=== PATIENT | male | born 1965 | race Caucasian/White ===

== ENCOUNTER 2019-02-13 08:39 | Outpatient (CLI) | payer MEDICAID ==
[~2019-02-13 08:39] MED LIST: BENZ1TAB7 PO; BUSP30TA3 PO; CLON-529 PO; DISU250T PO; DOCU100C41 PO; DULO-31 PO; HYDR50TA65 PO; LAMO100T PO; LURA60TA2 PO; NICO-669 PO; NITR0.4T48 SL; RANI-388 PO
== END 2019-02-13 23:59 | disposition home or self-care (01) ==
LOC: RAD 08:39
PROVIDERS: ATTEND Family Medicine
DX: G40.909 Epilepsy, unspecified, not intractable, without status epilepticus (principal)
CPT/HCPCS: 95816

== ENCOUNTER 2022-05-02 11:10 | Inpatient (IN) | payer MEDICAID ==
[~2022-05-02] VITALS: Ht 172.7 cm; Wt 101.0 kg
[~2022-05-02 11:10] MED LIST changes: -BENZ1TAB7 PO; +BENZ1TAB78 PO; +LURA60TA PO; -LURA60TA2 PO
[2022-05-02 12:20] LABS: HEMATOCRIT 41.1 % (42.0-52.0); HEMOGLOBIN 13.5 g/dl (14.0-17.9)
[2022-05-02 12:21] LABS: BASOPHILS % (AUTO) 0.4 % (0-1); EOSINOPHILS # (AUTO) 0.1 X10'3 (0-0.9); EOSINOPHILS % (AUTO) 0.8 % (0-6); MEAN CORPUSCULAR HEMOGLOBIN 26.8 PG (27.0-31.0); MEAN CORPUSCULAR HGB CONC 32.7 g/dL (33.0-36.5); MEAN CORPUSCULAR VOLUME 81.9 FL (78-98); MEAN PLATELET VOLUME 7.6 FL (7.4-10.4); MONOCYTES # (AUTO) 0.8 X10'3 (0-0.9); NEUTROPHILS # (AUTO) 11.7 X10'3 (1.8-7.7); NEUTROPHILS % (AUTO) 85.8 % (42-75); PLATELET COUNT 298 X10'3 (140-440); RED BLOOD COUNT 5.02 X10'6 (4.70-6.10); RED CELL DISTRIBUTION WIDTH 17.6 % (11.5-14.5); WHITE BLOOD COUNT 13.6 X10'3 (4.5-11.0)
[2022-05-02 12:24] LABS: ALANINE AMINOTRANSFERASE 30 U/L (12-78); ALBUMIN 2.2 G/DL (3.4-5.0); ALBUMIN/GLOBULIN RATIO 0.4 (1.1-1.5); ALKALINE PHOSPHATASE 128 IU/L (46-116); ANION GAP 12 (8-16); ASPARTATE AMINO TRANSFERASE 39 U/L (10-37); BILIRUBIN,TOTAL 0.6 MG/DL (0.1-1.0); BLOOD UREA NITROGEN 9 MG/DL (7-18); BUN/CREATININE RATIO 12.3 (10.0-20.0); CALCIUM 9.2 MG/DL (8.5-10.1); CHLORIDE 97 MMOL/L (99-107); CREATININE 0.73 MG/DL (0.60-1.10); GLUCOSE 106 MG/DL (70-104); POTASSIUM 3.7 MMOL/L (3.5-5.1); SODIUM 134 MMOL/L (135-145); TOTAL PROTEIN 7.5 G/DL (6.4-8.2); eGFR > 90 ML/MIN
[2022-05-02 12:27] LABS: LACTIC SEPSIS 2.8 MMOL/L (0.4-2.0)
[2022-05-02 12:28] LABS: D-DIMER 8.29 MG/L FEU (0-0.50)
[2022-05-02 12:32] LABS: ETHANOL 0.045 GM/DL (0.0-0.010)
--- NOTE | 2022-05-02 12:40 | NUR ---
Tried to put a peripheral IV catheter x 2 without success.
--- NOTE | 2022-05-02 12:54 | NUR ---
A bed bug was found by the on call pharmacy technician and was reported to Dilia, Director of ER. Housekeeping was notified. Contact precaution initiated. Explained to patient that we have to put him on contact isolation because of the bed bug that was found on him.
[2022-05-02] MEDS ORDERED: iohexol 350MG/ML 100ml bottle IV ONE (12:57)
--- NOTE | 2022-05-02 15:04 | NUR ---
PT. GAVE US PERMISSION TO SPEAK TO FRIEND SAM COLLAZO [phone]
[2022-05-02] MEDS ORDERED: CefTRIAXone/D5W-Rocephin 1gm 50 ML IV ONE (15:30)
[2022-05-02] MEDS ORDERED: azithromycin/NS 500mg/250ml 250 ML IV ONE (15:30)
[2022-05-02] MEDS ORDERED: ipratropium/albuterol 3ml nebule NEB ONE (16:25)
[2022-05-02] MEDS ORDERED: vancomycin inj 1,000 MG in normal saline 250ml IV soln 250 ML IV ONE (16:25)
[2022-05-02] MEDS ORDERED: vancomycin/NS 1 GM ADD-VANTAGE 250 ML IV ONE (16:25)
[2022-05-02] MEDS ORDERED: ondansetron/PF 4mg/2ml inj IV PRN (16:35)
[2022-05-02] MEDS ORDERED: mag hydrox/Alum hydrox/simeth 30ml oral suspension PO PRN (16:35)
[2022-05-02] MEDS ORDERED: magnesium hydroxide 30ml (MOM) UD suspension PO PRN (16:35)
[2022-05-02] MEDS ORDERED: HYDROcodone/acetaminophen 5mg/325mg tablet PO PRN (16:35)
[2022-05-02] MEDS ORDERED: enoxaparin 100mg/ml syringe SUBCUT ONE ×2 (16:35→17:55)
[2022-05-02] MEDS ORDERED: morphine 2 MG/ML inj. syringe IV PRN (16:35)
[2022-05-02] MEDS ORDERED: acetaminophen 325mg tablet PO PRN ×2 (16:35)
--- NOTE | 2022-05-02 18:12 | NUR ---
Paged Dr. Melgar: DIEGO Moe RN RE: Gino Dior. certified pest control technician told me that patient is + for DVT, she told Dr. Gardner, Im not sure if he contacted you. Lovenox 100 mg SQ was given prior to the vascular jose alberto. Do you have any order?
[2022-05-02] MEDS: docusate sod 100mg capsule PO SCH (20:00)
[2022-05-02] MEDS ORDERED: Permethrin Cream 60gm TP STA (21:10)
--- NOTE | 2022-05-02 21:10 | NUR ---
MD Hdz notified patient arrived to the floor from the ER with suspected bed bugs and was not treated in the ER. New order was received for Permethrin cream to be applied after shower.
[2022-05-02 21:30] VITALS: BP 129/72
[2022-05-02] MEDS: HYDROcodone/acetaminophen 10/325mg tab PO PRN (21:37)
--- NOTE | 2022-05-02 23:00 | NUR ---
Patient to room 4018 around 2100. Was not treated in ED per protocol with 1st shower and cream for possible bed bugs. stair builder here, stair builder in ED and Financial Assistant aware. Patient went straight from [facility] to shower in room and then cream applied and clean gown provided. Engineering provided sticky strips to door and all PPE was delivered to [facility]. No bugs visualized at this time.
[2022-05-03 06:00] VITALS: BP 115/66
[2022-05-03 06:06] LABS: ALBUMIN 1.7 G/DL (3.4-5.0); ANION GAP 7 (8-16); BLOOD UREA NITROGEN 9 MG/DL (7-18); BUN/CREATININE RATIO 13.2 (10.0-20.0); CALCIUM 8.6 MG/DL (8.5-10.1); CHLORIDE 102 MMOL/L (99-107); CREATININE 0.68 MG/DL (0.60-1.10); GLUCOSE 83 MG/DL (70-104); POTASSIUM 3.3 MMOL/L (3.5-5.1); SODIUM 134 MMOL/L (135-145); TOTAL CARBON DIOXIDE 24.8 MMOL/L (24-32); eGFR > 90 ML/MIN
[2022-05-03 06:20] LABS: BASOPHILS % (AUTO) 0.5 % (0-1); EOSINOPHILS # (AUTO) 0.5 X10'3 (0-0.9); EOSINOPHILS % (AUTO) 6.2 % (0-6); HEMATOCRIT 34.8 % (42.0-52.0); HEMOGLOBIN 11.8 g/dl (14.0-17.9); LYMPHOCYTES # (AUTO) 1.7 X10'3 (1.1-4.8); LYMPHOCYTES % (AUTO) 19.8 % (21-51); MEAN CORPUSCULAR HEMOGLOBIN 27.5 PG (27.0-31.0); MEAN CORPUSCULAR HGB CONC 33.8 g/dL (33.0-36.5); MEAN CORPUSCULAR VOLUME 81.3 FL (78-98); MEAN PLATELET VOLUME 7.8 FL (7.4-10.4); MONOCYTES # (AUTO) 0.7 X10'3 (0-0.9); MONOCYTES % (AUTO) 8.4 % (2-12); NEUTROPHILS # (AUTO) 5.4 X10'3 (1.8-7.7); NEUTROPHILS % (AUTO) 65.1 % (42-75); PLATELET COUNT 271 X10'3 (140-440); RED BLOOD COUNT 4.28 X10'6 (4.70-6.10); RED CELL DISTRIBUTION WIDTH 17.6 % (11.5-14.5); WHITE BLOOD COUNT 8.3 X10'3 (4.5-11.0)
--- NOTE | 2022-05-03 07:33 | NUR ---
Patient in room ORTHO 4018. I have received report from Bryanna COATS and had the opportunity to ask questions and assume patient care.
[2022-05-03 08:30] VITALS: BP 131/75
[2022-05-03] MEDS: docusate sod 100mg capsule PO SCH ×2 (08:34→20:00)
[2022-05-03] MEDS: apixaban 5mg tablet PO SCH ×2 (08:34→20:47)
[2022-05-03] MEDS: morphine 2 MG/ML inj. syringe IV PRN ×2 (08:35→20:48)
[2022-05-03] MEDS ORDERED: NICOTINE POLACRILEX 2 MG LOZENGE BC PRN (10:15)
[2022-05-03] MEDS ORDERED: docusate sod 100mg capsule PO PRN (10:15)
[2022-05-03] MEDS ORDERED: hydrOXYzine 25 MG tablet PO PRN (10:15)
[2022-05-03] MEDS: levetiracetam 250mg tablet PO SCH ×2 (11:32→20:46)
[2022-05-03] MEDS: busPIRone 15mg tablet PO SCH ×2 (11:32→20:45)
[2022-05-03] MEDS: lamoTRIgine 100mg tablet PO SCH ×2 (11:32→20:45)
[2022-05-03] MEDS ORDERED: LACO150T4 PO (13:22)
[2022-05-03] MEDS ORDERED: PRAZ2CAP2 PO (13:22)
[2022-05-03] MEDS ORDERED: LIT300C PO (13:22)
[2022-05-03] MEDS ORDERED: PALI234D IM (13:22)
[2022-05-03] MEDS ORDERED: PROP20TA6 PO (13:22)
[2022-05-03] MEDS ORDERED: LEVE10006 PO (13:22)
[2022-05-03] MEDS ORDERED: FLUO40CA PO (13:22)
--- NOTE | 2022-05-03 17:31 | NUR ---
called evs and notified that nursing staff placed belongings in plastic bag and that the plastic bag needs to be taken down stairs and locked up until the patient is discharged
[2022-05-03 18:00] VITALS: BP 115/52
[2022-05-03] MEDS: cloNIDine 0.1 mg tablet PO SCH (20:46)
[2022-05-03] MEDS: benztropine 1mg tablet PO SCH (20:46)
[2022-05-03] MEDS: famotidine 20mg tablet PO SCH (20:46)
[2022-05-03 22:00] VITALS: BP 137/69
[2022-05-04 04:31] VITALS: BP 132/68
[2022-05-04 06:00] VITALS: BP 118/54
[2022-05-04 07:15] LABS: BASOPHILS # (AUTO) 0.1 X10'3 (0-0.2); BASOPHILS % (AUTO) 0.5 % (0-1); EOSINOPHILS # (AUTO) 0.5 X10'3 (0-0.9); EOSINOPHILS % (AUTO) 5.3 % (0-6); HEMATOCRIT 36.3 % (42.0-52.0); HEMOGLOBIN 11.9 g/dl (14.0-17.9); LYMPHOCYTES # (AUTO) 1.4 X10'3 (1.1-4.8); LYMPHOCYTES % (AUTO) 13.9 % (21-51); MEAN CORPUSCULAR HEMOGLOBIN 26.9 PG (27.0-31.0); MEAN CORPUSCULAR HGB CONC 32.9 g/dL (33.0-36.5); MEAN CORPUSCULAR VOLUME 81.7 FL (78-98); MEAN PLATELET VOLUME 7.6 FL (7.4-10.4); MONOCYTES # (AUTO) 0.6 X10'3 (0-0.9); NEUTROPHILS # (AUTO) 7.4 X10'3 (1.8-7.7); NEUTROPHILS % (AUTO) 74.3 % (42-75); PLATELET COUNT 330 X10'3 (140-440); RED BLOOD COUNT 4.44 X10'6 (4.70-6.10); RED CELL DISTRIBUTION WIDTH 17.8 % (11.5-14.5)
[2022-05-04 07:47] LABS: ALBUMIN 1.6 G/DL (3.4-5.0); ANION GAP 10 (8-16); BLOOD UREA NITROGEN 11 MG/DL (7-18); BUN/CREATININE RATIO 17.7 (10.0-20.0); CALCIUM 8.6 MG/DL (8.5-10.1); CHLORIDE 100 MMOL/L (99-107); CREATININE 0.62 MG/DL (0.60-1.10); GLUCOSE 88 MG/DL (70-104); POTASSIUM 3.6 MMOL/L (3.5-5.1); SODIUM 136 MMOL/L (135-145); TOTAL CARBON DIOXIDE 26.1 MMOL/L (24-32); eGFR > 90 ML/MIN
[2022-05-04] MEDS: cloNIDine 0.1 mg tablet PO SCH ×2 (08:00→20:57)
[2022-05-04] MEDS: levetiracetam 250mg tablet PO SCH ×2 (08:31→20:57)
[2022-05-04] MEDS: lamoTRIgine 100mg tablet PO SCH ×3 (08:32→20:57)
[2022-05-04] MEDS: duloxetine 30mg CAPSULE.DR PO SCH (08:32)
[2022-05-04] MEDS: docusate sod 100mg capsule PO SCH ×2 (08:32→20:00)
[2022-05-04] MEDS: apixaban 5mg tablet PO SCH ×2 (08:32→20:57)
[2022-05-04] MEDS: benztropine 1mg tablet PO SCH ×2 (08:33→20:57)
[2022-05-04] MEDS: busPIRone 15mg tablet PO SCH ×2 (08:33→20:56)
[2022-05-04] MEDS: lurasidone 60mg tablet PO SCH (08:33)
[2022-05-04] MEDS: furosemide 20 MG/2 ML vial IV SCH (10:30)
[2022-05-04 10:55] VITALS: BP 114/70
--- NOTE | 2022-05-04 11:45 | NUR ---
as clinical instructor, i reviewed student nurse physical assessment of pt
[2022-05-04 18:00] VITALS: BP 100/75
[2022-05-04 20:52] VITALS: BP 124/69
[2022-05-04] MEDS: HYDROcodone/acetaminophen 10/325mg tab PO PRN (20:57)
[2022-05-04] MEDS: famotidine 20mg tablet PO SCH (20:57)
[2022-05-04 22:00] VITALS: BP 114/63
[2022-05-05 02:00] VITALS: BP 129/67
[2022-05-05 06:00] VITALS: BP 106/56
[2022-05-05 07:03] LABS: BASOPHILS # (AUTO) 0.1 X10'3 (0-0.2); BASOPHILS % (AUTO) 0.6 % (0-1); EOSINOPHILS # (AUTO) 0.7 X10'3 (0-0.9); HEMATOCRIT 37.3 % (42.0-52.0); HEMOGLOBIN 12.5 g/dl (14.0-17.9); LYMPHOCYTES # (AUTO) 1.7 X10'3 (1.1-4.8); MEAN CORPUSCULAR HEMOGLOBIN 27.1 PG (27.0-31.0); MEAN CORPUSCULAR HGB CONC 33.4 g/dL (33.0-36.5); MEAN CORPUSCULAR VOLUME 81.2 FL (78-98); MEAN PLATELET VOLUME 7.6 FL (7.4-10.4); MONOCYTES # (AUTO) 0.6 X10'3 (0-0.9); MONOCYTES % (AUTO) 4.7 % (2-12); NEUTROPHILS # (AUTO) 10.1 X10'3 (1.8-7.7); NEUTROPHILS % (AUTO) 76.7 % (42-75); PLATELET COUNT 388 X10'3 (140-440); RED CELL DISTRIBUTION WIDTH 17.2 % (11.5-14.5); WHITE BLOOD COUNT 13.1 X10'3 (4.5-11.0)
[2022-05-05 07:06] LABS: ALBUMIN 1.7 G/DL (3.4-5.0); ANION GAP 10 (8-16); BLOOD UREA NITROGEN 12 MG/DL (7-18); BUN/CREATININE RATIO 18.5 (10.0-20.0); CALCIUM 8.9 MG/DL (8.5-10.1); CHLORIDE 98 MMOL/L (99-107); CREATININE 0.65 MG/DL (0.60-1.10); GLUCOSE 97 MG/DL (70-104); POTASSIUM 3.2 MMOL/L (3.5-5.1); SODIUM 136 MMOL/L (135-145); TOTAL CARBON DIOXIDE 28.2 MMOL/L (24-32); eGFR > 90 ML/MIN
[2022-05-05] MEDS: lamoTRIgine 100mg tablet PO SCH ×3 (07:57→20:03)
[2022-05-05] MEDS: benztropine 1mg tablet PO SCH ×2 (07:57→19:16)
[2022-05-05] MEDS: apixaban 5mg tablet PO SCH ×2 (07:57→19:16)
[2022-05-05] MEDS: lurasidone 60mg tablet PO SCH (07:57)
[2022-05-05] MEDS: busPIRone 15mg tablet PO SCH ×2 (07:57→19:15)
[2022-05-05] MEDS: duloxetine 30mg CAPSULE.DR PO SCH (07:57)
[2022-05-05] MEDS: levetiracetam 250mg tablet PO SCH ×2 (07:58→19:16)
[2022-05-05] MEDS: docusate sod 100mg capsule PO SCH ×2 (07:58→19:30)
[2022-05-05] MEDS: cloNIDine 0.1 mg tablet PO SCH ×2 (08:00→19:16)
--- NOTE | 2022-05-05 10:00 | NUR ---
Agree with Miley WINCHESTER physical assessment
[2022-05-05] MEDS: furosemide 20 MG/2 ML vial IV SCH (10:25)
[2022-05-05 18:00] VITALS: BP 111/61
[2022-05-05] MEDS: HYDROcodone/acetaminophen 10/325mg tab PO PRN (19:28)
[2022-05-05] MEDS: famotidine 20mg tablet PO SCH (20:04)
[2022-05-05 22:00] VITALS: BP 102/54
[2022-05-06 02:00] VITALS: BP 109/60
[2022-05-06] MEDS ORDERED: magnesium 4gm in 100ml NS 100 ML IV PRN (03:45)
[2022-05-06] MEDS ORDERED: magnesium Cl slow-release 64mg tablet PO PRN (03:45)
[2022-05-06] MEDS ORDERED: potassium Cl 20 mEq SR tablet PO PRN ×2 (03:45)
[2022-05-06] MEDS ORDERED: potassium Cl 40MEQ/1/2NS 520ml 520 ML IV PRN (03:45)
[2022-05-06] MEDS: HYDROcodone/acetaminophen 10/325mg tab PO PRN (05:42)
[2022-05-06 07:00] VITALS: BP 113/69
[2022-05-06 07:11] LABS: BASOPHILS # (AUTO) 0.1 X10'3 (0-0.2); BASOPHILS % (AUTO) 0.6 % (0-1); EOSINOPHILS # (AUTO) 0.7 X10'3 (0-0.9); EOSINOPHILS % (AUTO) 4.9 % (0-6); HEMATOCRIT 39.3 % (42.0-52.0); LYMPHOCYTES # (AUTO) 1.7 X10'3 (1.1-4.8); LYMPHOCYTES % (AUTO) 11.2 % (21-51); MEAN CORPUSCULAR HEMOGLOBIN 26.8 PG (27.0-31.0); MEAN CORPUSCULAR HGB CONC 33.1 g/dL (33.0-36.5); MEAN CORPUSCULAR VOLUME 80.9 FL (78-98); MEAN PLATELET VOLUME 7.8 FL (7.4-10.4); MONOCYTES # (AUTO) 0.6 X10'3 (0-0.9); MONOCYTES % (AUTO) 3.8 % (2-12); NEUTROPHILS # (AUTO) 12.1 X10'3 (1.8-7.7); NEUTROPHILS % (AUTO) 79.5 % (42-75); PLATELET COUNT 467 X10'3 (140-440); RED BLOOD COUNT 4.86 X10'6 (4.70-6.10); RED CELL DISTRIBUTION WIDTH 17.4 % (11.5-14.5); WHITE BLOOD COUNT 15.2 X10'3 (4.5-11.0)
[2022-05-06 07:31] LABS: ANION GAP 11 (8-16); BLOOD UREA NITROGEN 11 MG/DL (7-18); BUN/CREATININE RATIO 14.1 (10.0-20.0); CALCIUM 9.2 MG/DL (8.5-10.1); CHLORIDE 96 MMOL/L (99-107); CREATININE 0.78 MG/DL (0.60-1.10); GLUCOSE 97 MG/DL (70-104); MAGNESIUM 1.7 MG/DL (1.5-2.4); SODIUM 136 MMOL/L (135-145); TOTAL CARBON DIOXIDE 28.6 MMOL/L (24-32); eGFR > 90 ML/MIN
[2022-05-06] MEDS ORDERED: propranolol 10mg tablet PO SCH (08:00)
[2022-05-06] MEDS ORDERED: lithium carbonate 300mg SR tablet (LithoBID) PO SCH (08:00)
[2022-05-06] MEDS ORDERED: K and/or MAG REPLACEMENT MC SCH (08:00)
[2022-05-06] MEDS ORDERED: LACOSAMIDE 50 MG TABLET PO SCH (08:00)
[2022-05-06] MEDS ORDERED: FLUoxetine 20mg capsule PO SCH (08:00)
[2022-05-06] MEDS ORDERED: levetiracetam 250mg tablet PO SCH (08:00)
[2022-05-06] MEDS: docusate sod 100mg capsule PO SCH (08:38)
[2022-05-06] MEDS: lamoTRIgine 100mg tablet PO SCH ×2 (08:38→13:27)
[2022-05-06] MEDS: duloxetine 30mg CAPSULE.DR PO SCH (08:38)
[2022-05-06] MEDS: furosemide 20 MG/2 ML vial IV SCH (08:38)
[2022-05-06] MEDS: benztropine 1mg tablet PO SCH (08:38)
[2022-05-06] MEDS: cloNIDine 0.1 mg tablet PO SCH (08:39)
[2022-05-06] MEDS: lurasidone 60mg tablet PO SCH (08:40)
[2022-05-06] MEDS: apixaban 5mg tablet PO SCH (08:40)
[2022-05-06] MEDS: busPIRone 15mg tablet PO SCH (08:41)
--- NOTE | 2022-05-06 09:29 | NUR ---
Initial: Pt admit DX SOB s/ exertion, RUE weakness s/p seizure, and acute cor pulmonale secondary to PE w/ hx etoh 0.045 on admit per EMR. Pt initial PO fluctuates ~34% avg heart healthy meals not meeting needs. Noted no cardiac hx in EMR; RD paged MD regarding liberalizing to regular diet as well as routine thiamine, folic acid, and MVI supplementation if agreeable. Pt still eating breakfast at this time per RN; will add smoothie WB and magic cup BIDLD to assist meeting needs-dietary notified. LBM 05/05 refused colace this AM per EMR. Will monitor for further PO acceptance and nutrition intervention needs this admit. Rec: 1. liberalize to regular diet; heart healthy not indicated w/ no cardiac hx per MD notes- encourage PO 2. smoothie WB, magic cup BIDLD to assist meeting needs 3. monitor further PO trends for ONS needs 4. routine bowel care 5. daily wt Addendum: 05/06/22 at [address] Amended: Links added.
[2022-05-06 10:34] VITALS: BP 111/72
[2022-05-06] MEDS ORDERED: APIX5TAB3 PO (11:15)
[2022-05-06] MEDS ORDERED: LEVO750T68 PO (11:17)
--- NOTE | 2022-05-06 11:38 | NUR ---
O2 Sat at rest on room air: 88% If below 89%: YES Recovery O2 Sat at rest on 2 LPM via nasal cannula and recovered to 91% No further documentation is necessary.
[2022-05-06] MEDS ORDERED: prazosin 1mg capsule PO SCH (21:00)
== END 2022-05-06 16:20 | disposition home health service (06) | DRG 53 ==
LOC: ER 11:10 → ORTHO 4S 16:37 → UNDOADMIN 21:09
PROVIDERS: ADMIT Internal Medicine; ATTEND Internal Medicine
PROC: CB121ZZ Planar Nuclear Medicine Imaging of Lungs and Bronchi using Technetium 99m (Tc-99m) (ICD-10-PCS; 2022-05-02)
PROC: 4A00X4Z Measurement of Central Nervous Electrical Activity, External Approach (ICD-10-PCS; principal; 2022-05-04)
DX: G40.802 Other epilepsy, not intractable, without status epilepticus (principal); J96.01 Acute respiratory failure with hypoxia; E43 Unspecified severe protein-calorie malnutrition; E87.20 Acidosis, unspecified; I27.81 Cor pulmonale (chronic); J18.9 Pneumonia, unspecified organism; I82.442 Acute embolism and thrombosis of left tibial vein; F17.210 Nicotine dependence, cigarettes, uncomplicated; S14.3XXA Injury of brachial plexus, initial encounter; W18.39XA Other fall on same level, initial encounter; J44.0 Chronic obstructive pulmonary disease with (acute) lower respiratory infection; I82.463 Acute embolism and thrombosis of calf muscular vein, bilateral; B19.20 Unspecified viral hepatitis C without hepatic coma; F31.9 Bipolar disorder, unspecified; F10.10 Alcohol abuse, uncomplicated; R53.1 Weakness; L03.90 Cellulitis, unspecified; R94.01 Abnormal electroencephalogram [EEG]; M79.603 Pain in arm, unspecified; F41.9 Anxiety disorder, unspecified; Z79.01 Long term (current) use of anticoagulants; Z80.9 Family history of malignant neoplasm, unspecified; Z79.899 Other long term (current) drug therapy; Z68.33 Body mass index [BMI] 33.0-33.9, adult; Y93.89 Activity, other specified; Y92.89 Other specified places as the place of occurrence of the external cause; Y99.8 Other external cause status
CPT/HCPCS: 36415; 70450; 70551; 71045; 73060; 78582; 80048; 80053; 80320; 81479; 82140; 83605; 83735; 83880; 83891; 83894; 83898; 84145; 84484; 85025; 85300; 85301; 85303; 85305; 85306; 85379; 86146; 86147; 87040; 87081; 93005; 93306; 93970; 94640; 94760; 95816; 97161; 97530; 99285; A4615; A9539; A9540; G0378; J0456; J0696; J1650; J1940; J2270; J3370; J3490; Q9967